=== PATIENT | male | born 1960 | race African-American/Black ===

== ENCOUNTER 2020-01-17 11:29 | Inpatient (IN) | payer OTHER ==
[2020-01-17] MEDS ORDERED: ACETAMINOPHEN 325 MG TABLET PO ONE (12:09)
[2020-01-17] MEDS ORDERED: NORMAL SALINE 1000 ML 1,000 ML IV ONE ×2 (12:09→13:57)
[2020-01-17] MEDS ORDERED: IBUPROFEN 600 MG TABLET PO ONE (12:09)
--- NOTE | 2020-01-17 12:12 | ER Document Report ---
ED Medical Screen (RME) - General Chief Complaint: Cold Symptoms Stated Complaint: SORE THROAT,BODY PAIN,HEADACHE Time Seen by Provider: 01/17/20 12:01 Primary Care Provider: NAOMI KOROMA DO [Primary Care Provider] - Follow up as needed Notes: Patient is a 59-year-old male who presents emergency department with flulike symptoms. Patient has had a cough for the past week. Reports a sore throat. Patient states that he has been taking NyQuil with little relief. Patient states that he is a type II diabetic on insulin. He also has hypertension. Patient has a right prosthetic. Patient states that his sugars have been up in the 200-300s. Exam: Tachycardic with a heart rate of 112. I have greeted and performed a rapid initial assessment of this patient. A comprehensive ED assessment and evaluation of the patient, analysis of test results and completion of medical decision making process will be conducted by an additional ED providers. TRAVEL OUTSIDE OF THE [place] IN LAST 30 DAYS: No - Related Data Allergies/Adverse Reactions: No Known Allergies Allergy (Verified 01/17/20 11:55) Home Medications: regular insulin. HTN medication Past Medical History - Social History Frequency of alcohol use: None Drug Abuse: None - Past Medical History Cardiac Medical History: Reports: Hx Hypertension Endocrine Medical History: Reports: Hx Diabetes Mellitus Type 2 Physical Exam - Vital signs Vitals: Temp Pulse Resp BP Pulse Ox 99.1 F 112 H 20 147/59 H 97 01/17/20 11:35 01/17/20 11:35 01/17/20 11:35 01/17/20 11:35 01/17/20 11:35 Course - Vital Signs Vital signs: Temp Pulse Resp BP Pulse Ox 99.1 F 112 H 20 147/59 H 97 01/17/20 11:35 01/17/20 11:35 01/17/20 11:35 01/17/20 11:35 01/17/20 11:35 Doctor's Discharge - Discharge Referrals: NAOMI KOROMA DO [Primary Care Provider] - Follow up as needed
[2020-01-17] MEDS ORDERED: ONDANSETRON HCL INJ/PF 4 MG/2 ML SDV IV ONE (12:13)
--- NOTE | 2020-01-17 12:59 | ER Document Report ---
ED General - General Chief Complaint: Cold Symptoms Stated Complaint: SORE THROAT,BODY PAIN,HEADACHE Time Seen by Provider: 01/17/20 12:01 Primary Care Provider: NAOMI KOROMA DO [Primary Care Provider] - Follow up as needed Notes: HPI: 59-year-old male with past medical history as recorded including high blood pressure and a right BKA who presents today with the onset around 5 days ago of runny nose, congestion, cough, sore throat, and a low-grade intermittent subjective fever. Patient also states some minimal pain with urination. He does state some left-sided flank pain. He did take Tylenol upon arrival. He has had one episode of vomiting and no diarrhea. Patient denies any chest pain or leg swelling. ROS: See HPI All other review of systems reviewed and otherwise negative Reviewed vital signs and nursing note as charted by RN. PHYSICAL EXAM: CONSTITUTIONAL: Alert and oriented and responds appropriately to questions. Well-appearing; well-nourished HEAD: Normocephalic; atraumatic EYES: PERRL; Conjunctivae clear, sclerae non-icteric ENT: Normal nose; bilateral nonpurulent nasal rhinorrhea; moist mucous membranes; pharynx with minimal post erythema with no peritonsillar swelling with a midline nonswollen uvula NECK: Supple without meningismus; non-tender; no cervical lymphadenopathy, no masses CARD: Regular rate and rhythm; no murmurs; symmetric distal pulses RESP: Normal chest excursion without splinting or tachypnea; breath sounds clear and equal bilaterally; no wheezes, no rhonchi, no rales ABD/GI: Normal bowel sounds; non-distended; soft, non-tender; no palpable organo megaly or masses BACK: The back appears normal and is non-tender to palpation EXT: Normal ROM in all joints; right BKA; non-tender to palpation; no edema SKIN: No acute lesions noted NEURO: CN 2-12 intact; 5/5 bilateral upper and lower extremity strength with sensation intact to light touch PSYCH: The patient's mood and manner are appropriate. Grooming and personal hygiene are appropriate. TRAVEL OUTSIDE OF THE [place] IN LAST 30 DAYS: No - Related Data Allergies/Adverse Reactions: No Known Allergies Allergy (Verified 01/17/20 11:55) Home Medications: regular insulin. HTN medication Past Medical History - Social History Smoking Status: Current Every Day Smoker Frequency of alcohol use: None Drug Abuse: None Family History: Reviewed & Not Pertinent Patient has suicidal ideation: No Patient has homicidal ideation: No - Past Medical History Cardiac Medical History: Reports: Hx Hypertension Endocrine Medical History: Reports: Hx Diabetes Mellitus Type 2 Physical Exam - Vital signs Vitals: Temp Pulse Resp BP Pulse Ox 99.1 F 112 H 20 147/59 H 97 01/17/20 11:35 01/17/20 11:35 01/17/20 11:35 01/17/20 11:35 01/17/20 11:35 Course - Re-evaluation Re-evalutation: 01/17/20 12:58 Given the above history and physical, we will obtain basic labs, influenza, rapid strep, x-ray of the chest, provide antipyretics and reassess. I do believe the risk currently of acute bacterial meningitis to be extraordinarily low. Patient has no tenderness to the abdomen. 01/17/20 13:58 White blood cell count, urine analysis, ABG, and glucose as recorded. A second liter of fluid has been provided. Dose of insulin will be given. No laboratory signs of DKA. Concerned about the possibility of pyelonephritis. I will order renal colic CT scan to make sure that there is no obstructing kidney stone. 01/17/20 16:17 No kidney stones in the ureters themselves. Signs consistent with pyelone phritis. White blood cell counts in the urine as recorded. White blood cell count in the blood is recorded. Rocephin has been provided. Urine culture has been sent. Patient will be admitted for further evaluation and treatment. - Vital Signs Vital signs: Temp Pulse Resp BP Pulse Ox 99.3 F 112 H 20 123/60 96 01/17/20 14:00 01/17/20 11:35 01/17/20 15:00 01/17/20 15:00 01/17/20 15:00 - Laboratory Result Diagrams: 01/17/20 12:55 01/17/20 12:55 Laboratory results interpreted by me: 01/17/20 01/17/20 01/17/20 12:15 12:55 12:55 WBC 21.5 H Seg Neuts % (Manual) 82 H Lymphocytes % (Manual) 5 L Abs Neuts (Manual) 17.6 H Abs Monocytes (Manual) 2.4 H VBG pCO2 VBG HCO3 Sodium 131.9 L Potassium 5.2 H Chloride 97 L Carbon Dioxide 20 L BUN 22 H Creatinine 1.35 H Est GFR (MDRD) Non-Af 54 L Glucose 591 H* POC Glucose AST 11 L Alkaline Phosphatase 155 H Albumin 3.4 L Urine Protein 100 H Urine Glucose (UA) >=500 H Urine Ketones 20 H Urine Blood LARGE H Ur Leukocyte Esterase MODERATE H 01/17/20 01/17/20 13:10 14:59 WBC Seg Neuts % (Manual) Lymphocytes % (Manual) Abs Neuts (Manual) Abs Monocytes (Manual) VBG pCO2 30.3 L VBG HCO3 18.6 L Sodium Potassium Chloride Carbon Dioxide BUN Creatinine Est GFR (MDRD) Non-Af Glucose POC Glucose 417 H* AST Alkaline Phosphatase Albumin Urine Protein Urine Glucose (UA) Urine Ketones Urine Blood Ur Leukocyte Esterase Critical Care Note - Critical Care Note Total time excluding time spent on procedures (mins): 45 Discharge - Discharge Clinical Impression: Pyelonephritis, Hyperglycemia Condition: Fair Disposition: ADMITTED INPATIENT Admitting Provider: Giovanni (Hospitalist) Unit Admitted: IMCU Referrals: NAOMI KOROMA DO [Primary Care Provider] - Follow up as needed
--- NOTE | 2020-01-17 13:00 | EKG REPORT ---
SEVERITY:- ABNORMAL ECG - SINUS TACHYCARDIA PROBABLE LVH WITH SECONDARY REPOL ABNRM : Confirmed by: Tony Clark MD 17-Jan-2020 13:00:06
[2020-01-17 13:23] LABS: VENOUS BLOOD HCO3 18.6 mmol/L (20-32); VENOUS BLOOD PCO2 30.3 mmHg (35-63); VENOUS BLOOD PH 7.41 (7.30-7.42)
[2020-01-17 13:40] LABS: HEMATOCRIT 41.3 % (37.9-51.0); HEMOGLOBIN 13.8 g/dL (13.5-17.0); MEAN CORPUSCULAR HEMOGLOBIN 30.3 pg (27.0-33.4); MEAN CORPUSCULAR HGB CONC 33.4 g/dL (32.0-36.0); MEAN CORPUSCULAR VOLUME 91 fl (80-97); PLATELET COUNT 300 10^3/uL (150-450); RED BLOOD COUNT 4.56 10^6/uL (4.35-5.55); RED CELL DISTRIBUTION WIDTH 13.7 % (11.5-14.0); WHITE BLOOD COUNT 21.5 10^3/uL (4.0-10.5)
--- NOTE | 2020-01-17 13:40 | RADIOLOGY REPORT (SQ) ---
EXAM DESCRIPTION: CHEST SINGLE VIEW COMPLETED DATE/TIME: 01/17/2020 1:27 pm REASON FOR STUDY: cough; congestion COMPARISON: None. EXAM PARAMETERS: NUMBER OF VIEWS: One view. TECHNIQUE: An AP view of the chest was obtained. RADIATION DOSE: NA LIMITATIONS: None. FINDINGS: LUNGS AND PLEURA: Asymmetric consolidative opacity in the right hemithorax. The right lat eral costophrenic sulcus is blunted. There is no pneumothorax. MEDIASTINUM AND HILAR STRUCTURES: No mediastinal or hilar contour abnormality. HEART AND VASCULAR STRUCTURES: The cardiac silhouette and pulmonary vasculature are within normal snyder its. BONES: No acute findings. HARDWARE: None in the chest. OTHER: No other finding. IMPRESSION: Asymmetric consolidative opacity in the mid right hemithorax. Correlation with clinical findings to exclude a pneumonia is recommended. TECHNICAL DOCUMENTATION: JOB ID: [id number] 2010 [employer]- All Rights Reserved Reading location - IP/workstation name: [email or web address]
[2020-01-17 13:42] LABS: ALBUMIN 3.4 g/dL (3.5-5.0); ALKALINE PHOSPHATASE 155 U/L (38-126); ANION GAP 15 (5-19); ASPARTATE AMINO TRANSFERASE 11 U/L (17-59); BILIRUBIN,DIRECT 0.1 mg/dL (0.0-0.4); BILIRUBIN,TOTAL 0.7 mg/dL (0.2-1.3); BLOOD UREA NITROGEN 22 mg/dL (7-20); CALCIUM 8.5 mg/dL (8.4-10.2); CARBON DIOXIDE 20 mmol/L (22-30); CHLORIDE 97 mmol/L (98-107); POTASSIUM 5.2 mmol/L (3.6-5.0); TOTAL PROTEIN 6.5 g/dL (6.3-8.2)
[2020-01-17 13:49] LABS: ABSOLUTE LYMPHOCYTES# (MANUAL) 1.5 10^3/uL (0.5-4.7); ABSOLUTE MONOCYTES # (MANUAL) 2.4 10^3/uL (0.1-1.4); BASOPHILS % (MANUAL) 0 % (0-2); EOSINOPHILS % (MANUAL) 0 % (0-6); LYMPHOCYTES % (MANUAL) 5 % (13-45); MONOCYTES % (MANUAL) 11 % (3-13); SEGMENTED NEUTROPHILS % (MAN) 82 % (42-78); TOTAL CELLS COUNTED 100
[2020-01-17 13:50] LABS: PLATELET COMMENT ADEQUATE; POLYCHROMASIA SLIGHT; TOXIC GRANULATION SLIGHT
[2020-01-17 13:54] LABS: APPEARANCE,URINE CLOUDY; BILIRUBIN,URINE NEGATIVE (NEGATIVE); CALCIUM OXALATE CRYSTALS,URINE TOO NUMEROUS TO CNT /HPF; COLOR,URINE AMBER; GLUCOSE, URINE >=500 mg/dL (NEGATIVE); KETONES,URINE 20 mg/dL (NEGATIVE); LEUKOCYTE ESTERASE,URINE MODERATE (NEGATIVE); NITRITE,URINE NEGATIVE (NEGATIVE); PROTEIN,URINE 100 mg/dL (NEGATIVE); URINE SPECIFIC GRAVITY 1.022; UROBILINOGEN,URINE NEGATIVE mg/dL (<2.0)
[2020-01-17 13:55] LABS: GLUCOSE 591 mg/dL (75-110)
[2020-01-17] MEDS ORDERED: CEFTRIAXONE 1 GM/D5W RTU 1 GM/50 ML RTUPB IV ONE (13:57)
[2020-01-17] MEDS ORDERED: INSULIN REG, HUMAN 100 UNIT/ML 3 ML VIAL (PYX) IV ONE ×2 (13:59→22:30)
[2020-01-17 14:03] LABS: A TYPE INFLUENZA AG NEGATIVE (NEGATIVE); B INFLUENZA AG NEGATIVE (NEGATIVE)
--- NOTE | 2020-01-17 15:18 | RADIOLOGY REPORT (SQ) ---
EXAM DESCRIPTION: CT ABD/PELVIS NO ORAL OR IV COMPLETED DATE/TIME: 01/17/2020 2:53 pm REASON FOR STUDY: 37; left flank pain; uti COMPARISON: None. TECHNIQUE: CT scan of the abdomen and pelvis performed without intravenous or oral contrast. Images reviewed with lung, soft tissue, and bone windows. Reconstructed coronal and sagittal MPR images revi ewed. All images stored on PACS. All CT scanners at this facility use dose modulation, iterative reconstruction, and/or weight based d osing when appropriate to reduce radiation dose to as low as reasonably achievable (ALARA). [facility]: Dose Right [facility]: CareDose [facility]: Dose Right [facility]: Teradose 4D [facility]: Smart [employer] RADIATION DOSE: CT Rad equipment meets quality standard of care and radiation dose reduction techniq ues were employed. CTDIvol: 5.5 mGy. DLP: 291 mGy-cm. LIMITATIONS: None. FINDINGS: LOWER CHEST: Pleural-based flame-shaped opacity in the right lower lobe (image 7 of series 3) could represent round atelectasis or an infection. There is no cardiomegaly or pericardial effus ion NON-CONTRASTED LIVER, SPLEEN, ADRENALS: Evaluation is limited due to the absence of intravenous contr ast. There is no CT evidence of hepatic steatosis. The spleen is normal in size. The adrenal gland are enlarged and there is a discrete 2.2 x 2.1 cm nodule on the left that is indeterminate (since it is attenuation measures greater than 10 Hounsfield units). PANCREAS: No acute gross abnormality of the pancreas. GALLBLADDER: Cholelithiasis without other associated ancillary findings to indicate an acute cholecys titis. RIGHT KIDNEY AND URETER: Evaluation is limited due to the absence of intravenous contrast. There is a staghorn calculus and there are foci of gas within several upper pole calices (image 30 of series 3 ) ; despite the absence of hydronephrosis, hydroureter and ureterolithiasis correlation with clinical findings to exclude a pyonephrosis is recommended. LEFT KIDNEY AND URETER: Evaluation is limited due to the absence of intravenous contrast does; there are several caliceal calculi that measure up to 16 mm in diameter. There is no hydronephrosis, hydro ureter or ureterolithiasis. AORTA AND RETROPERITONEUM: No aneurysm of the abdominal aorta. No retroperitoneal adenopathy, hemorr janel or mass. BOWEL AND PERITONEAL CAVITY: No bowel obstruction, bowel wall thickening or pericolonic/ perienteric inflammation. No mesenteric adenopathy, free intraperitoneal fluid or mesenteric/ omental inflammati on. APPENDIX: Normal. PELVIS, BLADDER, AND ABDOMINAL WALL:The urinary bladder is distended and there is gas within its lume n. There is no urinary bladder calculus. The prostate gland is enlarged. BONES: Vacuum disc phenomena at L2-L3 associated with sclerosis of the endplates. There is no acute fracture. OTHER: No other finding. IMPRESSION: 1. Staghorn calculus on the right and foci of gas within several renal calices. Despite the absence of obstruction given the presence of gas within the renal calices correlation with clini kirsten findings is recommended to exclude a pyonephrosis. 2. Left-sided caliceal calculi that measure up to 16 mm without associated hydronephrosis. 3. Cholelithiasis without acute cholecystitis. 4. Pleural-based flame-shaped opacity in the right lower lobe (image 7 of series 3) could represent r ound atelectasis or an infection. COMMENT: Quality ID # [id number]: Final reports with documentation of one or more dose reduction techniques (e.g., Automated exposure control, adjustment of the mA and/or kV according to patient size, use of iterative reconstruction technique) TECHNICAL DOCUMENTATION: JOB ID: [id number] 2010 [employer]- All Rights Reserved Reading location - IP/workstation name: [email or web address]
[2020-01-17] MEDS ORDERED: ONDANSETRON HCL INJ/PF 4 MG/2 ML SDV IV PRN (16:57)
[2020-01-17] MEDS ORDERED: PROMETHAZINE HCL INJ 25 MG/1 ML VIAL IV PRN (16:57)
[2020-01-17] MEDS ORDERED: IPRATROPIUM/ALBUTEROL 0.5-2.5 MG/3 ML AMPUL NEB PRN (16:57)
[2020-01-17] MEDS ORDERED: ACETAMINOPHEN 325 MG TABLET PO PRN (16:57)
[2020-01-17] MEDS ORDERED: DEXTROSE 50%-WATER 25 GM/50 ML DISP.SYRIN IV PRN ×2 (17:02)
[2020-01-17] MEDS ORDERED: DEXTROSE 40% GEL 15 GM TUBE PO PRN ×2 (17:02)
[2020-01-17] MEDS ORDERED: GLUCAGON,HUMAN RECOMB 1 MG INJ IM PRN (17:02)
[2020-01-17] MEDS ORDERED: METOPROLOL TARTRATE PF/INJ 5 MG/5 ML SDV IV PRN (17:03)
[2020-01-17] MEDS ORDERED: MORPHINE SULFATE 10 MG/ML INJ IV PRN (17:03)
[2020-01-17] MEDS ORDERED: HYDRALAZINE HCL INJ/PF 20 MG/1 ML SDV IV PRN (17:03)
--- NOTE | 2020-01-17 17:45 | PDOC H&P ---
History of Present Illness Admission Date/PCP: 01/17/20 17:14 NAOMI KOROMA DO History of Present Illness: KARRI BREWER JR is a 59 year old male past medical history of diabetes with diabetic neuropathy status post right BKA, right kidney staghorn calculus, hypertension, CAD, who recently moved from [place] currently living here with his daughter at [facility], presenting to ED complaining of sore throat, runny nose, congestion, greenish productive cough and subjective fever for the last 3 to 4 days, also complaining of left flank sharp, consistent, 5/5 pain for the last 2 weeks, associated with dysuria, frequency and urgency. Denies any recent foreign travel, stating that her daughter has more symptoms, denies any shortness of breath, chest pain, nausea, vomiting, abdominal pain, diarrhea, constipation. CT abdomen pelvis showed right kidney staghorn calculus and left kidney possible pyelonephritis. Past Medical History Cardiac Medical History: Reports: Hypertension Endocrine Medical History: Reports: Diabetes Mellitus Type 2 Social History Smoking Status: Current Every Day Smoker Family History Family History: Reviewed & Not Pertinent Parental Family History Reviewed: Yes Children Family History Reviewed: Yes Sibling(s) Family History Reviewed.: Yes Medication/Allergy Allergies/Adverse Reactions: No Known Allergies Allergy (Verified 01/17/20 11:55) Review of Systems Review of Systems: as per hpi Physical Exam Vital Signs: Temp Pulse Resp BP Pulse Ox 99.3 F 112 H 19 124/60 97 01/17/20 14:00 01/17/20 11:35 01/17/20 17:01 01/17/20 17:00 01/17/20 17:01 Intake & Output 01/16/20 01/17/20 01/18/20 06:59 06:59 06:59 Intake Total 2049 Balance 2049 Weight 70 kg General appearance: PRESENT: no acute distress, well-developed, well-nourished Respiratory exam: PRESENT: clear to auscultation eric. ABSENT: rales, rhonchi, wheezes Cardiovascular exam: PRESENT: RRR. ABSENT: diastolic murmur, rubs, systolic murmur GI/Abdominal exam: PRESENT: normal bowel sounds, soft, other - Left costovertebral tenderness.. ABSENT: distended, guarding, mass, organolmegaly, rebound, tenderness Gentrourinary exam: PRESENT: other - Left costovertebral tenderness. Musculoskeletal exam: PRESENT: other - Left BKA. Neurological exam: PRESENT: alert, awake, oriented to person, oriented to place, oriented to time, oriented to situation, CN II-XII grossly intact. ABSENT: motor sensory deficit Skin exam: PRESENT: dry, intact, warm. ABSENT: cyanosis, rash Results Laboratory Results: 01/17/20 12:55 01/17/20 12:55 01/17/20 01/17/20 01/17/20 12:15 12:55 12:55 WBC 21.5 H RBC 4.56 Hgb 13.8 Hct 41.3 MCV 91 MCH 30.3 MCHC 33.4 RDW 13.7 Plt Count 300 Seg Neutrophils % Not Reportable VBG pH VBG pCO2 VBG HCO3 VBG Base Excess Sodium 131.9 L Potassium 5.2 H Chloride 97 L Carbon Dioxide 20 L Anion Gap 15 BUN 22 H Creatinine 1.35 H Est GFR ( Amer) > 60 Glucose 591 H* Calcium 8.5 Total Bilirubin 0.7 AST 11 L Alkaline Phosphatase 155 H Total Protein 6.5 Albumin 3.4 L Lipase 57.1 Urine Color RUY Urine Appearance CLOUDY Urine pH 8.0 Ur Specific [place] 1.022 Urine Protein 100 H Urine Glucose (UA) >=500 H Urine Ketones 20 H Urine Blood LARGE H Urine Nitrite NEGATIVE Ur Leukocyte Esterase MODERATE H Urine WBC (Auto) >182 Urine RBC (Auto) 37 01/17/20 13:10 WBC RBC Hgb Hct MCV MCH MCHC RDW Plt Count Seg Neutrophils % VBG pH 7.41 VBG pCO2 30.3 L VBG HCO3 18.6 L VBG Base Excess -5.0 Sodium Potassium Chloride Carbon Dioxide Anion Gap BUN Creatinine Est GFR ( Amer) Glucose Calcium Total Bilirubin AST Alkaline Phosphatase Total Protein Albumin Lipase Urine Color Urine Appearance Urine pH Ur Specific [place] Urine Protein Urine Glucose (UA) Urine Ketones Urine Blood Urine Nitrite Ur Leukocyte Esterase Urine WBC (Auto) Urine RBC (Auto) 01/17/20 12:55 Troponin I 0.012 Impressions: Chest X-Ray 01/17/20 12:06 IMPRESSION: Asymmetric consolidative opacity in the mid right hemithorax. Correlation with clinical findings to exclude a pneumonia is recommended. Abdomen/Pelvis CT 01/17/20 13:59 IMPRESSION: 1. Staghorn calculus on the right and foci of gas within several renal calices. Despite the absence of obstruction given the presence of gas within the renal calices correlation with clinical findings is recommended to exclude a pyonephrosis. 2. Left-sided caliceal calculi that measure up to 16 mm without associated hydronephrosis. 3. Cholelithiasis without acute cholecystitis. 4. Pleural-based flame-shaped opacity in the right lower lobe (image 7 of series 3) could represent round atelectasis or an infection. Assessment and Plan - Diagnosis (1) Pyelonephritis Is this a current diagnosis for this admission?: Yes Plan: Left costovertebral tenderness. Left kidney calyceal calculi 1.6 cm without any associated hydronephrosis. UA positive for leukocyte esterase. Admit to medical floor, broad-spectrum empiric IV antibiotics, urine and blood culture. (2) Uncontrolled diabetes mellitus Qualifiers: Diabetes mellitus type: type 2 Is this a current diagnosis for this admission?: Yes Plan: Presenting with blood glucose level of 500+. Admit to floor, fluid resuscitation, diabetic diet, basal, sliding, correctional insulin, hypoglycemic protocol, Accu-Chek, adjust dosage as needed. (3) Hypertension Is this a current diagnosis for this admission?: Yes Plan: Euvolemic. Normotensive. Restart home meds. Adjust meds as needed. PRN hydralazine and metoprolol. (4) CAD (coronary artery disease) Qualifiers: Coronary Disease-Associated Artery/Lesion type: [place] artery Is this a current diagnosis for this admission?: Yes Plan: Denies any anginal symptoms. EKG no acute changes. Troponins negative. Restart home meds. Adjust meds as needed. Outpatient PCP and cardiology follow-up. (5) Staghorn calculus Is this a current diagnosis for this admission?: Yes Plan: History of right kidney staghorn calculus. As per patient he was diagnosed a year ago and was evaluated by urologist at [place] and was told that no intervention needed. Monitor renal function. Will arrange urology follow-up upon discharge. (6) AIDA (acute kidney injury) Is this a current diagnosis for this admission?: Yes Plan: Prerenal, likely due to low p.o. intake. Volume resuscitation guided by volume status, monitor electrolytes and replace as needed, avoid nephrotoxic meds. (7) Hyperkalemia Is this a current diagnosis for this admission?: Yes Plan: No acute EKG changes. Admit to telemetry. Hyperkalemia protocol. (8) Upper respiratory infection Qualifiers: URI type: unspecified viral URI Qualified Code(s): J06.9 - Acute upper respiratory infection, unspecified Is this a current diagnosis for this admission?: Yes Plan: Likely viral. Rapid strep negative. Rapid flu negative. Denies any foreign travel, reporting sick contact at home. Monitor vitals. Supportive measures.
[2020-01-17] MEDS ORDERED: INSULIN GLARGINE,HUM.REC.ANLOG 1,000 UNIT/10 ML VIAL SUBCUT ONE (18:00)
[2020-01-17] MEDS ORDERED: SODIUM POLYSTYRENE SULFONATE 15 GM/60 ML PO ONE (18:30)
[2020-01-17] MEDS: PANTOPRAZOLE SODIUM 40 MG TABLET.DR PO SCH (18:34)
[2020-01-17] MEDS: PIPERACILLIN SODIUM/TAZOBACTAM 3.375 GM in NORMAL SALINE 100 ML IV SCH (18:45)
[2020-01-17] MEDS: NORMAL SALINE 1000 ML 1,000 ML IV PRN (18:46)
[2020-01-17] MEDS ORDERED: INSULIN GLARGINE,HUM.REC.ANLOG 1,000 UNIT/10 ML VIAL (PYX) SUBCUT ONE (19:15)
[2020-01-17] MEDS ORDERED: INSULIN REG, HUMAN 100 UNIT/ML 3 ML VIAL (PYX) SUBCUT ONE (22:30)
[2020-01-17] MEDS: INSULIN LISPRO 100 UNIT/ML 3 ML VIAL SUBCUT SCH (22:37)
[2020-01-18] MEDS: PIPERACILLIN SODIUM/TAZOBACTAM 3.375 GM in NORMAL SALINE 100 ML IV SCH ×5 (00:43→23:17)
[2020-01-18] MEDS: PANTOPRAZOLE SODIUM 40 MG TABLET.DR PO SCH ×2 (05:25→17:28)
[2020-01-18 05:26] LABS: HEMATOCRIT 35.4 % (37.9-51.0); MEAN CORPUSCULAR HEMOGLOBIN 30.2 pg (27.0-33.4); MEAN CORPUSCULAR HGB CONC 33.9 g/dL (32.0-36.0); MEAN CORPUSCULAR VOLUME 89 fl (80-97); PLATELET COUNT 280 10^3/uL (150-450); RED BLOOD COUNT 3.98 10^6/uL (4.35-5.55); RED CELL DISTRIBUTION WIDTH 13.7 % (11.5-14.0); WHITE BLOOD COUNT 20.5 10^3/uL (4.0-10.5)
[2020-01-18] MEDS: NORMAL SALINE 1000 ML 1,000 ML IV PRN (05:28)
[2020-01-18] MEDS: OXYCODONE-ACETAMINOPHEN 5-325 MG TABLET PO PRN ×3 (05:28→19:42)
[2020-01-18 05:43] LABS: ALBUMIN 2.7 g/dL (3.5-5.0); ALKALINE PHOSPHATASE 120 U/L (38-126); ANION GAP 7 (5-19); ASPARTATE AMINO TRANSFERASE 12 U/L (17-59); BILIRUBIN,TOTAL 0.3 mg/dL (0.2-1.3); BLOOD UREA NITROGEN 19 mg/dL (7-20); CALCIUM 7.5 mg/dL (8.4-10.2); CARBON DIOXIDE 22 mmol/L (22-30); CHLORIDE 107 mmol/L (98-107); GLUCOSE 232 mg/dL (75-110); TOTAL PROTEIN 5.5 g/dL (6.3-8.2)
[2020-01-18 05:55] LABS: ABSOLUTE LYMPHOCYTES# (MANUAL) 1.6 10^3/uL (0.5-4.7); ABSOLUTE MONOCYTES # (MANUAL) 0.8 10^3/uL (0.1-1.4); BAND NEUTROPHILS % (MANUAL) 3 % (3-5); BASOPHILS % (MANUAL) 0 % (0-2); EOSINOPHILS % (MANUAL) 0 % (0-6); LYMPHOCYTES % (MANUAL) 7 % (13-45); MONOCYTES % (MANUAL) 4 % (3-13); SEGMENTED NEUTROPHILS % (MAN) 85 % (42-78); TOTAL CELLS COUNTED 100
[2020-01-18 05:56] LABS: PLATELET COMMENT ADEQUATE
[2020-01-18 05:57] LABS: RBC MORPHOLOGY COMMENT NORMO-CYTIC/CHROMIC
[2020-01-18 06:05] LABS: POTASSIUM 4.1 mmol/L (3.6-5.0)
[2020-01-18] MEDS: INSULIN LISPRO 100 UNIT/ML 3 ML VIAL SUBCUT SCH ×5 (08:26→22:00)
[2020-01-18] MEDS: METFORMIN HCL 500 MG TABLET PO SCH ×2 (08:26→17:28)
--- NOTE | 2020-01-18 09:10 | PDOC PROGRESS REPORT ---
Subjective Progress Note for:: 01/18/20 Subjective:: KARRI BREWER JR is a 59 year old male past medical history of diabetes with diabetic neuropathy status post right BKA, right kidney staghorn calculus, hypertension, CAD, who recently moved from [place] currently living here with his daughter at [facility], presenting to ED complaining of sore throat, runny nose, congestion, greenish productive cough and subjective fever for the last 3 to 4 days, also complaining of left flank sharp, consistent, 5/5 pain for the last 2 weeks, associated with dysuria, frequency and urgency. Denies any recent foreign travel, stating that her daughter has more symptoms, denies any shortness of breath, chest pain, nausea, vomiting, abdominal pain, diarrhea, constipation. CT abdomen pelvis showed right kidney staghorn calculus and left kidney possible pyelonephritis. 01/18/2020. No acute events overnight. Still complaining of sore throat and generalized fatigue, left flank pain has resolved, p.o. tolerant, ambulatory, denies any fever, chills, nausea, vomiting, diarrhea, constipation or any urinary symptoms. Reason For Visit: PYELONEPHRITIS,AIDA Physical Exam Vital Signs: Temp Pulse Resp BP Pulse Ox 98.6 F 85 18 111/52 L 99 01/18/20 03:31 01/18/20 03:31 01/18/20 03:31 01/18/20 03:31 01/18/20 03:31 Intake & Output 01/17/20 01/18/20 01/19/20 06:59 06:59 06:59 Intake Total 3822 Output Total 350 Balance 3472 Weight 70 kg General appearance: PRESENT: no acute distress, well-developed, well-nourished Head exam: PRESENT: atraumatic, normocephalic Respiratory exam: PRESENT: clear to auscultation eric. ABSENT: rales, rhonchi, wheezes Cardiovascular exam: PRESENT: RRR. ABSENT: diastolic murmur, rubs, systolic murmur Pulses: PRESENT: normal dorsalis pedis pul GI/Abdominal exam: PRESENT: normal bowel sounds, soft. ABSENT: distended, guarding, mass, organolmegaly, rebound, tenderness Extremities exam: PRESENT: full ROM. ABSENT: calf tenderness, clubbing, pedal edema Neurological exam: PRESENT: alert, awake, oriented to person, oriented to place, oriented to time, oriented to situation, CN II-XII grossly intact. ABSENT: motor sensory deficit Results Laboratory Results: 01/18/20 04:34 01/18/20 04:34 01/17/20 01/17/20 01/17/20 12:15 12:55 12:55 WBC 21.5 H RBC 4.56 Hgb 13.8 Hct 41.3 MCV 91 MCH 30.3 MCHC 33.4 RDW 13.7 Plt Count 300 Seg Neutrophils % Not Reportable VBG pH VBG pCO2 VBG HCO3 VBG Base Excess Sodium 131.9 L Potassium 5.2 H Chloride 97 L Carbon Dioxide 20 L Anion Gap 15 BUN 22 H Creatinine 1.35 H Est GFR ( Amer) > 60 Glucose 591 H* Lactic Acid Calcium 8.5 Magnesium Total Bilirubin 0.7 AST 11 L Alkaline Phosphatase 155 H Total Protein 6.5 Albumin 3.4 L Lipase 57.1 Urine Color RUY Urine Appearance CLOUDY Urine pH 8.0 Ur Specific [place] 1.022 Urine Protein 100 H Urine Glucose (UA) >=500 H Urine Ketones 20 H Urine Blood LARGE H Urine Nitrite NEGATIVE Ur Leukocyte Esterase MODERATE H Urine WBC (Auto) >182 Urine RBC (Auto) 37 01/17/20 01/17/20 01/18/20 13:10 17:40 04:34 WBC 20.5 H RBC 3.98 L Hgb 12.0 L Hct 35.4 L MCV 89 MCH 30.2 MCHC 33.9 RDW 13.7 Plt Count 280 Seg Neutrophils % Not Reportable VBG pH 7.41 VBG pCO2 30.3 L VBG HCO3 18.6 L VBG Base Excess -5.0 Sodium Potassium Chloride Carbon Dioxide Anion Gap BUN Creatinine Est GFR ( Amer) Glucose Lactic Acid 1.1 Calcium Magnesium Total Bilirubin AST Alkaline Phosphatase Total Protein Albumin Lipase Urine Color Urine Appearance Urine pH Ur Specific [place] Urine Protein Urine Glucose (UA) Urine Ketones Urine Blood Urine Nitrite Ur Leukocyte Esterase Urine WBC (Auto) Urine RBC (Auto) 01/18/20 04:34 WBC RBC Hgb Hct MCV MCH MCHC RDW Plt Count Seg Neutrophils % VBG pH VBG pCO2 VBG HCO3 VBG Base Excess Sodium 136.4 L Potassium 4.1 D Chloride 107 Carbon Dioxide 22 Anion Gap 7 BUN 19 Creatinine 0.99 Est GFR ( Amer) > 60 Glucose 232 H Lactic Acid Calcium 7.5 L Magnesium 2.3 Total Bilirubin 0.3 AST 12 L Alkaline Phosphatase 120 Total Protein 5.5 L Albumin 2.7 L Lipase Urine Color Urine Appearance Urine pH Ur Specific [place] Urine Protein Urine Glucose (UA) Urine Ketones Urine Blood Urine Nitrite Ur Leukocyte Esterase Urine WBC (Auto) Urine RBC (Auto) 01/17/20 12:55 Troponin I 0.012 Impressions: Chest X-Ray 01/17/20 12:06 IMPRESSION: Asymmetric consolidative opacity in the mid right hemithorax. Correlation with clinical findings to exclude a pneumonia is recommended. Abdomen/Pelvis CT 01/17/20 13:59 IMPRESSION: 1. Staghorn calculus on the right and foci of gas within several renal calices. Despite the absence of obstruction given the presence of gas within the renal calices correlation with clinical findings is recommended to exclude a pyonephrosis. 2. Left-sided caliceal calculi that measure up to 16 mm without associated hydronephrosis. 3. Cholelithiasis without acute cholecystitis. 4. Pleural-based flame-shaped opacity in the right lower lobe (image 7 of series 3) could represent round atelectasis or an infection. Assessment and Plan - Diagnosis (1) Pyelonephritis Is this a current diagnosis for this admission?: Yes Plan: Left costovertebral tenderness resolved. Left kidney calyceal calculi 1.6 cm without any associated hydronephrosis. UA positive for leukocyte esterase. Continue broad-spectrum empiric IV antibiotics, urine and blood culture. (2) Uncontrolled diabetes mellitus Qualifiers: Diabetes mellitus type: type 2 Is this a current diagnosis for this admission?: Yes Plan: Improving. Not optimized. Hemoglobin A1c 12.2%. Presented with blood glucose level of 500+. Continue fluid resuscitation, diabetic diet, basal, sliding, correctional insulin, hypoglycemic protocol, Accu-Chek, adjust dosage as needed. (3) Hypertension Is this a current diagnosis for this admission?: Yes Plan: Euvolemic. Normotensive. Continue lisinopril 40 mg daily. Adjust meds as needed. PRN hydralazine and metoprolol. (4) CAD (coronary artery disease) Qualifiers: Coronary Disease-Associated Artery/Lesion type: [place] artery Is this a current diagnosis for this admission?: Yes Plan: Denies any anginal symptoms. EKG no acute changes. Troponins negative. Restart home meds. Adjust meds as needed. Outpatient PCP and cardiology follow-up. (5) Staghorn calculus Is this a current diagnosis for this admission?: Yes Plan: History of right kidney staghorn calculus. As per patient he was diagnosed a year ago and was evaluated by urologist at [place] and was told that no intervention needed. Monitor renal function. Will arrange urology follow-up upon discharge. (6) AIDA (acute kidney injury) Is this a current diagnosis for this admission?: Yes Plan: Resolved. Prerenal, likely due to low p.o. intake. Monitor volume status and electrolytes and replace as needed, avoid nephrotoxic meds. (7) Hyperkalemia Is this a current diagnosis for this admission?: Yes Plan: Resolved. No acute EKG changes. Hyperkalemia protocol. Potassium level tomorrow. (8) Upper respiratory infection Qualifiers: URI type: unspecified viral URI Qualified Code(s): J06.9 - Acute upper respiratory infection, unspecified Is this a current diagnosis for this admission?: Yes Plan: Likely viral. Complaining of sore throat. Rapid strep negative. Rapid flu negative. Denies any foreign travel, reporting sick contact at home. Monitor vitals. Supportive measures.
[2020-01-18] MEDS ORDERED: (PENDING PHARMACY ID) (Lisinopril [Zestril] 40 MG) PO SCH (10:00)
[2020-01-18] MEDS ORDERED: INSULIN GLARGINE,HUM.REC.ANLOG 1,000 UNIT/10 ML VIAL SUBCUT SCH ×3 (10:00→18:00)
[2020-01-18] MEDS: DOCUSATE SODIUM 100 MG CAPSULE PO SCH (10:11)
[2020-01-18] MEDS: LISINOPRIL 10 MG TABLET PO SCH (10:24)
[2020-01-18] MEDS: ENOXAPARIN SODIUM INJ 30 MG/0.3 ML DISP.SYRIN SUBCUT SCH (10:31)
[2020-01-18] MEDS: BENZOCAINE/MENTHOL SORE THROAT LOZENGE BUCCAL PRN (16:25)
[2020-01-18] MEDS: FLUTICASONE NASAL SPRAY 50 MCG/SPRY 120 SPRAY/16 GM NASL SCH (17:28)
[2020-01-19] MEDS: OXYCODONE-ACETAMINOPHEN 5-325 MG TABLET PO PRN ×2 (02:21→08:52)
[2020-01-19] MEDS: BENZOCAINE/MENTHOL SORE THROAT LOZENGE BUCCAL PRN (05:52)
[2020-01-19] MEDS: PANTOPRAZOLE SODIUM 40 MG TABLET.DR PO SCH (05:52)
[2020-01-19] MEDS: PIPERACILLIN SODIUM/TAZOBACTAM 3.375 GM in NORMAL SALINE 100 ML IV SCH (05:52)
[2020-01-19 08:14] LABS: ABSOLUTE EOSINOPHILS # (AUTO) 0.3 10^3/uL (0.0-0.6); ABSOLUTE LYMPHOCYTES (AUTO) 2.8 10^3/uL (0.5-4.7); ABSOLUTE MONOCYTES (AUTO) 0.7 10^3/uL (0.1-1.4); ABSOLUTE NEUT (AUTO) 8.9 10^3/uL (1.7-8.2); BASOPHILS % (AUTO) 0.4 % (0-2); EOSINOPHILS % (AUTO) 2.6 % (0-6); HEMATOCRIT 38.2 % (37.9-51.0); HEMOGLOBIN 12.7 g/dL (13.5-17.0); LYMPHOCYTES % (AUTO) 21.8 % (13-45); MEAN CORPUSCULAR HEMOGLOBIN 29.8 pg (27.0-33.4); MEAN CORPUSCULAR HGB CONC 33.3 g/dL (32.0-36.0); MEAN CORPUSCULAR VOLUME 90 fl (80-97); MONOCYTES % (AUTO) 5.5 % (3-13); PLATELET COUNT 320 10^3/uL (150-450); RED BLOOD COUNT 4.26 10^6/uL (4.35-5.55); RED CELL DISTRIBUTION WIDTH 13.8 % (11.5-14.0); SEGMENTED NEUTROPHILS % (AUTO) 69.7 % (42-78); TOTAL CELLS COUNTED % (AUTO) 100 %; WHITE BLOOD COUNT 12.8 10^3/uL (4.0-10.5)
[2020-01-19 08:32] LABS: ANION GAP 9 (5-19); BLOOD UREA NITROGEN 14 mg/dL (7-20); CARBON DIOXIDE 23 mmol/L (22-30); CHLORIDE 107 mmol/L (98-107); GLUCOSE 151 mg/dL (75-110); POTASSIUM 3.8 mmol/L (3.6-5.0)
[2020-01-19] MEDS: METFORMIN HCL 500 MG TABLET PO SCH (08:36)
[2020-01-19] MEDS: INSULIN LISPRO 100 UNIT/ML 3 ML VIAL SUBCUT SCH ×2 (08:36→13:27)
--- NOTE | 2020-01-19 08:47 | PDOC CONSULTATION ---
Consultation Consult Date: 01/19/20 Provider Consulted: SURGICAL SURGICALIST Consult reason:: melanotic stool History of Present Illness Admission Date/PCP: 01/17/20 17:14 NAOMI KOROMA DO History of Present Illness: KARRI BREWER JR is a 59 year old male with a history of intermittent painless rectal bleeding. The patient is admitted for pyelonephritis. The patient reports a long history of melanotic stool. His last colonoscopy was approximately 8 years ago in [place]. He denies any history of polyps "that he is aware of". He denies any painful external hemorrhoids. The patient denies chest pain, shortness of breath, orthostasis, dizziness, headache, fevers, chills, nausea, vomiting, blurry vision. He does not take antiplatelets or blood thinners. He is a smoker, and drinks occasional alcohol. Past Medical History Cardiac Medical History: Reports: Hypertension Endocrine Medical History: Reports: Diabetes Mellitus Type 2 Psychiatric Medical History: Denies: Depression Social History Smoking Status: Current Every Day Smoker Cigarettes Packs Per Day: 0.5 Electronic Cigarette use?: No Frequency of Alcohol Use: None Hx Recreational Drug Use: No Drugs: None Hx Prescription Drug Abuse: No Family History Family History: Reviewed & Not Pertinent Parental Family History Reviewed: Yes Children Family History Reviewed: Yes Sibling(s) Family History Reviewed.: Yes Medication/Allergy Home Medications: Insulin Regular, Human [Humulin R (Reg) Insulin 100 unit/mL] 10 unit SQ QAM 01/17/20 Insulin Regular, Human [Humulin R (Reg) Insulin 100 unit/mL] 20 unit SQ QHS 01/17/20 Lisinopril [Zestril] 40 mg PO DAILY 01/17/20 Allergies/Adverse Reactions: No Known Allergies Allergy (Verified 01/17/20 11:55) Review of Systems Constitutional: ABSENT: anorexia, chills, fatigue, fever(s) Eyes: ABSENT: visual disturbances Ears: ABSENT: hearing changes Cardiovascular: ABSENT: chest pain Respiratory: ABSENT: cough, dyspnea Gastrointestinal: PRESENT: melena. ABSENT: abdominal pain, nausea, vomiting Genitourinary: ABSENT: dysuria Musculoskeletal: PRESENT: other - lower extremity amputation Integumentary: ABSENT: pruritus, rash Neurological: ABSENT: confusion, convulsions, dizziness Psychiatric: ABSENT: anxiety, depression Endocrine: ABSENT: cold intolerance, heat intolerance Hematologic/Lymphatic: ABSENT: easy bleeding, easy bruising Physical Exam Vital Signs: Temp Pulse Resp BP Pulse Ox 98.1 F 95 18 130/59 H 98 01/19/20 04:13 01/19/20 07:00 01/19/20 04:13 01/19/20 04:13 01/19/20 04:13 Intake & Output 01/18/20 01/19/20 01/20/20 06:59 06:59 06:59 Intake Total 3822 2164 100 Output Total 350 755 Balance 3472 1409 100 Weight 70 kg 73.2 kg General appearance: PRESENT: no acute distress, cooperative Head exam: PRESENT: atraumatic, normocephalic Eye exam: PRESENT: EOMI, PERRLA. ABSENT: scleral icterus Mouth exam: PRESENT: moist, neck supple Neck exam: ABSENT: meningismus, tenderness, thyromegaly, tracheal deviation Respiratory exam: PRESENT: clear to auscultation eric, unlabored. ABSENT: chest wall tenderness, tachypnea, wheezes Cardiovascular exam: PRESENT: RRR Pulses: PRESENT: normal radial pulses GI/Abdominal exam: PRESENT: soft. ABSENT: distended, firm, tenderness Rectal exam: PRESENT: deferred Extremities exam: PRESENT: other - Right BKA. ABSENT: clubbing Musculoskeletal exam: PRESENT: deformity. ABSENT: tenderness Neurological exam: PRESENT: alert, awake, oriented to person, oriented to place, oriented to time, oriented to situation, CN II-XII grossly intact. ABSENT: motor sensory deficit Psychiatric exam: ABSENT: agitated, anxious, depressed Focused psych exam: ABSENT: delusional Skin exam: ABSENT: cyanosis, erythema, jaundice Results Laboratory Results: 01/19/20 04:18 Stool Occult Blood POSITIVE 01/17/20 12:55 Troponin I 0.012 Impressions: Chest X-Ray 01/17/20 12:06 IMPRESSION: Asymmetric consolidative opacity in the mid right hemithorax. Correlation with clinical findings to exclude a pneumonia is recommended. Abdomen/Pelvis CT 01/17/20 13:59 IMPRESSION: 1. Staghorn calculus on the right and foci of gas within several renal calices. Despite the absence of obstruction given the presence of gas within the renal calices correlation with clinical findings is recommended to exclude a pyonephrosis. 2. Left-sided caliceal calculi that measure up to 16 mm without associated hydronephrosis. 3. Cholelithiasis without acute cholecystitis. 4. Pleural-based flame-shaped opacity in the right lower lobe (image 7 of series 3) could represent round atelectasis or an infection. Assessment & Plan - Diagnosis (1) Melena Is this a current diagnosis for this admission?: Yes - Plan Summary Plan Summary: This is a 59-year-old male with melanotic stool. He has intermittent rectal bleeding that is painless. I have recommended EGD and colonoscopy to evaluate his melena. The patient's last colonoscopy was 8 years ago, and was reportedly normal. I do not have access to these records, as his scope was performed in [facility]. I have offered to perform EGD and colonoscopy tomorrow for the patient, however he prefers discharge home with outpatient follow-up. This is reasonable, considering his melena does not appear to be life-threatening. Plan for EGD and colonoscopy as an outpatient. Surgery will sign off at this time. Please renotify with any questions or concerns.
[2020-01-19] MEDS ORDERED: INSULIN GLARGINE,HUM.REC.ANLOG 1,000 UNIT/10 ML VIAL SUBCUT SCH ×2 (10:00)
[2020-01-19] MEDS: ENOXAPARIN SODIUM INJ 30 MG/0.3 ML DISP.SYRIN SUBCUT SCH (10:27)
[2020-01-19] MEDS: DOCUSATE SODIUM 100 MG CAPSULE PO SCH (10:27)
[2020-01-19] MEDS: FLUTICASONE NASAL SPRAY 50 MCG/SPRY 120 SPRAY/16 GM NASL SCH (10:27)
[2020-01-19] MEDS: LISINOPRIL 10 MG TABLET PO SCH (10:27)
[2020-01-19 13:18] VITALS: BP 116/52
== END 2020-01-19 14:15 | disposition home or self-care (01) | DRG 690 ==
LOC: ER 11:29 → UNDOADMIN 17:14 → EH 17:14 → 3W 18:20
PROVIDERS: ADMIT Internal Medicine; ATTEND Internal Medicine
DX: N12 Tubulo-interstitial nephritis, not specified as acute or chronic (principal); K92.1 Melena; N17.9 Acute kidney failure, unspecified; E11.65 Type 2 diabetes mellitus with hyperglycemia; N20.0 Calculus of kidney; J06.9 Acute upper respiratory infection, unspecified; J00 Acute nasopharyngitis [common cold]; I10 Essential (primary) hypertension; I25.10 Atherosclerotic heart disease of native coronary artery without angina pectoris; E87.5 Hyperkalemia; F17.210 Nicotine dependence, cigarettes, uncomplicated; Z89.511 Acquired absence of right leg below knee; Z79.4 Long term (current) use of insulin
CPT/HCPCS: 36415; 71045; 74176; 80048; 80053; 81001; 82272; 82803; 82962; 83036; 83605; 83690; 83735; 84484; 85025; 87040; 87070; 87086; 87088; 87186; 87804; 87880; 93005; 93010; 96365; 96375; 99291; J0696; J1650; J1815; J2405; J2543; J3490; J7030; J7050